=== PATIENT | male | born 1980 ===

== ENCOUNTER 2017-11-15 14:03 | Outpatient (CLI) | END 2017-11-15 14:23 | disposition short-term general hospital (02) | LOC: AMBL 14:03 | PROVIDERS: ATTEND Family Medicine | DX: R50.9 Fever, unspecified (principal); K85.90 Acute pancreatitis without necrosis or infection, unspecified; K74.60 Unspecified cirrhosis of liver; I95.9 Hypotension, unspecified ==

== ENCOUNTER 2017-12-18 03:18 | Emergency (ER) ==
[2017-12-18 03:46] VITALS: BP 121/73; TEMP 98.8
[2017-12-18] MEDS ORDERED: ZOFRAN 4 MG/2 ML IVP STA (03:50)
[2017-12-18] MEDS ORDERED: MORPHINE 2 MG/ML SYRINGE IVP STA (03:50)
[2017-12-18 03:53] VITALS: BMI 26.8
[2017-12-18] MEDS ORDERED: DILAUDID IVP STA ×3 (04:23→06:31)
--- NOTE | 2017-12-18 05:04 | CT ---
Exam: CT of the abdomen and pelvis without contrast History: Abdominal pain Technique: [address] of the abdomen and pelvis without intravascular contrast FINDINGS: Atelectasis in the left lung base. The lung bases are clear otherwise. Large ascites is present. Nodular cirrhotic liver with mild and eight measuring AP diameter of 16 cm. Cholelithiasis is present without abnormal gallbladder distension. The appendix is normal. Normal caliber bowel l oops. Mesenteric edema is present. Vascular structures appear normal by noncontrast CT. Ascites containing umbilical hernia. No bowel loops are seen within the hernia sac. Large pelvic ascites. Colonic diverticulosis. Normal pelvic genitourinary structures. Peripheral e bienvenido of the subcutaneous fat. Impression: 1. Cirrhosis, splenomegaly and large ascites 2. Cholelithiasis without hydropic gallbladder. 3. Ascites containing umbilical hernia 4. No bowel or urinary obstruction 5. Colonic diverticulosis
--- NOTE | 2017-12-18 05:49 | ED.PDOC ---
General ED Provider: Dr. DEVIN RUSH-ER Chief Complaint: Abdominal Pain Stated Complaint: i have gall stones and they are acting up Time Seen by Physician: 05:45 Mode of Arrival: Wheelchair Information Source: Patient Exam Limitations: No limitations Nursing and Triage Documentation Reviewed and Agree: Yes Does patient meet sepsis criteria?: No System Inflammatory Response Syndrome: Not Applicable Sepsis Protocol: For patient's 13 years and over: Temp is 96.8 and below OR 101 and greater Pulse >90 BPM Resp >20/minute Acutely Altered Mental Status Are patient's symptoms suggestive of a new infection, such as: -Pneumonia -Skin, Soft Tissue -Endocarditis -UTI -Bone, Joint Infection -Implantable Device -Acute Abdominal Infection -Wound Infection -Meningitis -Blood Stream Catheter Infection -Unknown GI Complaint Exam - Abdominal Pain Complaint/Exam Onset: Gradual Duration: several weeks Symptoms Are: Still present Timing: Constant Current Severity: Moderate Location of Pain: Discrete, Epigastric Radiates To: Reports: Back Character: Reports: Dull, Aching Aggravating: Reports: Eating Alleviating: Reports: None Associated Signs and Symptoms: Denies: Diaphoresis, Fever, Cough, Chest pain, Dizziness, Back pain, Constipation, Blood in stool, Dysuria, Urinary frequency, Decreased urine output, Decreased appetite, Discharge, Nausea, Vomiting, Diarrhea, Decreased activity Related History: Reports: Similar episode Related Surgical History: Reports: None Abdominal Findings: Present: Pulsatile mass, Hernia Differential Diagnoses: Pancreatitis, GB Quality Indicator For Non-Traumatic Chest Pain/Syncope: EKG Performed Review of Systems - Review Of Systems Constitutional: Reports: No symptoms Eyes: Reports: No symptoms Ears, Nose, Mouth, Throat: Reports: No symptoms Respiratory: Reports: No symptoms Cardiac: Reports: No symptoms GI: Reports: Abdominal pain : Reports: No symptoms Musculoskeletal: Reports: No symptoms Skin: Reports: No symptoms Neurological: Reports: No symptoms Endocrine: Reports: No symptoms Hematologic/Lymphatic: Reports: No symptoms All Other Systems: Reviewed and Negative Past Medical History - Past Medical History Previously Healthy: No Endocrine: Reports: Unknown Cardiovascular: Reports: Unknown Respiratory: Reports: Unknown Hematological: Reports: Unknown Gastrointestinal: Reports: Unknown Genitourinary: Reports: Unknown Neuro/Psych: Reports: Unknown Musculoskeletal: Reports: Unknown Cancer: Reports: Unknown - Surgical History General Surgical History: Reports: Unknown - Family History Family History: Reports: Unknown - Social History Smoking Status: Former smoker Hx Substance Use: No Alcohol Screening: None - Immunizations Tetanus Shot up to Date: Yes Physical Exam - Physical Exam Appearance: Well-appearing, No pain distress, Well-nourished Pain Distress: Moderate Eyes: SHON, EOMI, Conjunctiva clear ENT: Ears normal, Nose normal, Oropharynx normal Neck: Supple Respiratory: Airway patent, Breath sounds clear, Breath sounds equal, Respirations nonlabored Cardiovascular: RRR, Pulses normal, No rub, No murmur GI/: Soft, Bowel sounds normal, Tender, Mass Musculoskeletal: Normal strength Skin: Warm, Dry, Normal color Neurological: Sensation intact, Motor intact, Reflexes intact, Cranial nerves intact, Alert, Oriented Psychiatric: Affect appropriate, Mood appropriate, Anxious Interpretation - Radiology Interpretation Radiology Interpretation By: Radiologist Radiology Results: Negative Exam Interpreted: CT Scan - EKG Interpretation Time of EKG #1: 05:51 Rate: Normal Rhythm: Sinus Ectopy: None [place]: [place] ST Segment: Normal Re-Evaluation - Re-Evaluation Time of Re-Evaluation: 05:51 Status: Improved Vital Signs Stable: Yes Pain Level: 0 Appearance: NAD Lungs: Clear Skin: Warm and Dry Neuro: Alert and Oriented X3 CV: RRR Critical Care Note - Critical Care Note Total Time (mins): 0 Course - Course Hematology/Chemistry: 12/18/17 04:10 12/18/17 04:10 Orders, Labs, Meds: Lab Review 12/18/17 12/18/17 12/18/17 04:10 04:10 04:59 WBC 5.85 RBC 2.53 L Hgb 8.8 L Hct 25.8 L MCV 102.0 H MCH 34.8 H MCHC 34.1 RDW Coeff of Terrance 14.7 Plt Count 113 L Immature Gran % (Auto) 0.3 Neut % (Auto) 63.1 Lymph % (Auto) 17.9 Wirt % (Auto) 13.3 H Eos % (Auto) 5.1 Baso % (Auto) 0.3 Immature Gran # (Auto) 0.0 Neut # (Auto) 3.7 Lymph # (Auto) 1.1 Wirt # (Auto) 0.8 Eos # (Auto) 0.3 Baso # (Auto) 0.0 Sodium 133 L Potassium 3.3 L Chloride 99 Carbon Dioxide 28 Anion Gap 9.3 BUN 15 Creatinine 0.79 Estimated GFR (MDRD) 112.00 BUN/Creatinine Ratio 18.98 Glucose 98 Calcium 7.8 L Total Bilirubin 2.7 H AST 62 H ALT 26 Alkaline Phosphatase 134 Total Creatine Kinase 82 Troponin I < 0.0100 Total Protein 6.1 L Albumin 2.1 L Globulin 4.0 Albumin/Globulin Ratio 0.53 Amylase 97 Lipase 69 Urine Color Yellow Urine Clarity Clear Urine pH 6.0 Ur Specific [place] >=1.030 Urine Protein 1+ Urine Glucose (UA) Negative Urine Ketones Negative Urine Blood Negative Urine Nitrite Negative Urine Bilirubin Negative Urine Urobilinogen 1.0 Ur Leukocyte Esterase Negative Orders Category Date Time Status EKG-(ED ONLY) Stat CARDIO 12/18/17 03:49 Completed ED IV/MEDIPORT/POWERPORT .ONCE EMERGENCY 12/18/17 03:50 Active AMYLASE Stat LAB 12/18/17 04:10 Completed CBC W/ AUTO DIFF Stat LAB 12/18/17 04:10 Completed COMPREHENSIVE METABOLIC PANEL Stat LAB 12/18/17 04:10 Completed CREATINE KINASE Stat LAB 12/18/17 04:10 Completed LIPASE Stat LAB 12/18/17 04:10 Completed PT WITH INR Stat LAB 12/18/17 04:10 Received TROPONIN I Stat LAB 12/18/17 04:10 Completed URINALYSIS C & S IF INDICATED Stat LAB 12/18/17 04:59 Completed 0.9 % Sodium Chloride [Saline Flush] MEDS 12/18/17 03:50 Ordered 1 syr IVF PRN PRN Hydromorphone HCl [Dilaudid] MEDS 12/18/17 04:23 Discontinued 1 mg IVP ONCE STA Hydromorphone HCl [Dilaudid] MEDS 12/18/17 05:05 Discontinued 1 mg IVP ONCE STA Morphine Sulfate [Morphine 2 mg/ml Syringe] MEDS 12/18/17 03:50 Discontinued 2 mg IVP ONCE STA Ondansetron HCl/Pf [Zofran 4 mg/2 ml] MEDS 12/18/17 03:50 Discontinued 4 mg IVP ONCE STA CT ABDOMEN/PELVIS WO CONTRAST Stat RADS 12/18/17 03:49 Completed Medications Generic Name Dose Route Start Last Admin Trade Name Freq PRN Reason Stop Dose Admin Sodium Chloride 1 syr 12/18/17 03:50 Saline Flush IVF PRN PRN To flush IV Discontinued Medications Generic Name Dose Route Start Last Admin Trade Name Freq PRN Reason Stop Dose Admin Hydromorphone HCl 1 mg 12/18/17 04:23 12/18/17 04:26 Dilaudid IVP 12/18/17 04:24 1 mg ONCE STA Administration Hydromorphone HCl 1 mg 12/18/17 05:05 12/18/17 05:08 Dilaudid IVP 12/18/17 05:06 1 mg ONCE STA Administration Morphine Sulfate 2 mg 12/18/17 03:50 12/18/17 04:15 Morphine 2 Mg/Ml Syringe IVP 12/18/17 03:51 2 mg ONCE STA Administration Ondansetron HCl 4 mg 12/18/17 03:50 12/18/17 04:15 Zofran 4 Mg/2 Ml IVP 12/18/17 03:51 4 mg ONCE STA Administration mr winters pain is epigastric and i think appropriate to his gallstones---he does umbilical hernia but this is not causing him trouble at this time---his hgb is 8 and appears stable from his recent [facility] stay0--denies any brb or melanotic stools Vital Signs: Temp Pulse Resp BP Pulse Ox 12/18/17 03:24 98.8 F 83 20 121/73 96 Departure - Departure Time of Disposition: 05:51 Disposition: HOME SELF-CARE Discharge Problem: Umbilical hernia without obstruction and without gangrene Cholelithiasis Qualifiers: Cholelithiasis location: gallbladder Cholecystitis presence: without cholecystitis Biliary obstruction: without biliary obstruction Qualified Code(s) : K80.20 - Calculus of gallbladder without cholecystitis without obstruction Instructions: Gallstones (ED) Condition: Good Pt referred to PMD for follow-up: No IPMP verified?: No Additional Instructions: bentyl 10mg qid prn pain #30--avoid fat--f/u with pcp and consider surgical referral Allergies/Adverse Reactions: Allergies adhesive Adverse Reaction (Verified 12/18/17 03:47) Rash Penicillins Adverse Reaction (Verified 12/18/17 03:47) Rash spironolactone Adverse Reaction (Verified 12/18/17 03:47) Nausea Home Medications: Ambulatory Orders Amiloride HCl 5 mg PO BID 12/18/17 Bumetanide 2 mg PO DAILY 12/18/17 Calcium Carbonate [Calcium] 500 mg PO DAILY 12/18/17 Ferrous Gluconate 324 mg PO DAILY 12/18/17 Fluticasone Propionate [Flonase] 1 spray NS DAILY PRN 12/18/17 Folic Acid 1 mg PO DAILY 12/18/17 Levofloxacin [Levaquin] 500 mg PO QDAC 12/18/17 Magnesium Oxide [Mag-Ox] 800 mg PO DAILY 12/18/17 Multivitamin/Iron/Folic Acid [Centrum Adults Tablet] 1 tab PO DAILY 12/18/17 Ondansetron [Zofran Odt] 4 mg PO Q8H PRN 12/18/17 Oxycodone HCl 10 mg PO Q4H PRN 12/18/17 Vitamin B Complex 1 each PO DAILY 12/18/17 Disposition Discussed With: Patient
== END 2017-12-18 08:50 | disposition home or self-care (01) ==
LOC: ED 03:18
DX: K80.20 Calculus of gallbladder without cholecystitis without obstruction (principal); K42.9 Umbilical hernia without obstruction or gangrene
CPT/HCPCS: 36415; 80053; 81001; 82150; 82550; 83690; 84484; 85025; 85610; 93005; 93010; 96374; 96375; 96376; 99283

== ENCOUNTER 2018-01-01 00:53 | Outpatient (CLI) | END 2018-01-01 01:12 | disposition short-term general hospital (02) | LOC: AMBL 00:53 | PROVIDERS: ATTEND Emergency Medicine | DX: R50.9 Fever, unspecified (principal); R19.00 Intra-abdominal and pelvic swelling, mass and lump, unspecified site; K74.60 Unspecified cirrhosis of liver; R40.2411 Glasgow coma scale score 13-15, in the field [EMT or ambulance]; R06.9 Unspecified abnormalities of breathing; R10.9 Unspecified abdominal pain; R00.0 Tachycardia, unspecified ==

== ENCOUNTER 2018-01-12 17:46 | Outpatient (CLI) | END 2018-01-12 17:57 | disposition short-term general hospital (02) | LOC: AMBL 17:46 | PROVIDERS: ATTEND Internal Medicine | DX: M54.2 Cervicalgia (principal); M54.9 Dorsalgia, unspecified; V59.50XA Passenger in pick-up truck or van injured in collision with unspecified motor vehicles in traffic accident, initial encounter ==

== ENCOUNTER 2018-03-18 18:41 | Outpatient (CLI) | END 2018-03-18 19:02 | disposition short-term general hospital (02) | LOC: AMBL 18:41 | PROVIDERS: ATTEND Emergency Medicine | DX: R41.82 Altered mental status, unspecified (principal); R50.9 Fever, unspecified; R00.0 Tachycardia, unspecified ==

== ENCOUNTER 2018-10-12 15:00 | Outpatient (RCR) ==
--- NOTE | 2018-09-27 09:31 | RS.OPPTEV2 ---
Date of Note: 09/24/18 Visit #: 1 Number of visits approved by Insurance: pending Date of Evaluation: 09/24/18 Payer Source: Medicaid Treatment Diagnosis: General weakness, gait abnormality History of Condition/Mechanism of Injury:: Mr. Garcia reports generalized weakness as a result of multiple medical problems and hospitalizations. He was diagnosed with Cirrhosis in 2016 and has been having complications with ascites and cellulitis. In March 2018,he had an umbilical hernia rupture and had to have emergency surgery. During that surgery, an artery in a muscle was knicked and he had to have another surgery. He spent approximately a month in the hospital and then went to a SNF for rehab. has been home for about a week and is staying with his mother. Level of Function: Prior to the last 18 months to 2 years, Mr. Garcia was independent in all selfcare, ADL's and worked hanging drywall. Functional Limitations: Sleep, Self Care, ADL's, Reaching, Pushing, Pulling, Lifting, Carrying, Standing, Bending, Squatting, Ambulation, Community Access/ Integration Current Subjective/complaints:: Mr. Garcia reports continued ascites and swelling in his LE's. States his legs are very sore to the touch and makes ambulation difficult. States he is unable to wash his feet. He has difficulty at times getting out of a chair or bed due to leg pain. Usually he is independent with transfers. He reports difficulty getting in/out of a vehicle. States he cannot stand or walk very far without getting swelling into his legs. States he is not using an assistive device. His mother states that he will use a cane if he walks very far. He denies any recent falls. His mother's home has 3 steps to the deck. He reports pain in his legs, especially feet, ankles, and knees. States he wants to gain his strength back and return to work. *Precautions: failed Umbilical hernia ALLERGY TO ADHESIVE Medical History Medical History Comments:: Cirrhosis Surgical History Comments:: Failed umbilical hernia repair Smoking Status: Former smoker Hx Home Medications: Bumex, Cipro, Lactulose, Oxycodone, Lorazepam, Haldol, Rifaximin,ViT E, Zinc, Vit C, Iron, magnesium Patient's Goals: His goal is to ride his bike again and return to work. Functional Outcome Measure LE Functional Scale: 15 () Tinetti: 21 () - G Codes & Severity Modifier G Codes & Modifier: NA Source of G Code score: NA Observation - Observation Inspection: Mr. Garcia presents with sigificant swelling in bilateral LE's below the knees. Left LE is obviously more swollen than the right. He also demonstrates abdomen ascites. Posture: Forward Head, Rounded Shoulders Gait - Gait Pattern Gait Comments: Patient ambulates without an assistive device, independently. He demonstates no reciprocal arm swing and minimal trunk rotation with ambulation. Demonstrates decreased hip and knee flexion during swing phase bilaterally. Demonstrates short stride and decreased heelstrike and toe off. General Range of Motion: Bilateral LE AROM is WFL's. AROM is limited by swelling in LE' s and hip flexion limited by abdomen. Left UE is WFL's, Right shoulder limited to 90 degrees flexion/abduction, all else of right shoulder WFL's. Muscle Strength: Right shoulder 4-/5, elbow 4+/5, wrist 4/5. Left shoulder 4/5, elbow and wrist 4 to 4+/5. Trunk strength 3+/5. Bilateral hip strength 4-/5, knees 4/5, ankles 4/5. Reports pain with all MMT of the LE's due to tenderness. Machine Brush Maker Strength Left Hand Machine Brush Maker Strength: 66 lbs Right Hand Machine Brush Maker Strength: 78-80 lbs Dynamometer Testing Position: 2nd Position Palpation Comments:: Tenderness with any light touch or pressure to both legs from the knees to his feet. Sensation - Sensation Right Lower Extremity: Intact/Normal Left Lower Extremity: Intact/Normal Comments: Reports tenderness with light touch from his knees to his feet. Balance - Sitting Balance Static Sitting Balance: Good Dynamic Sitting Balance: Good - Standing Balance Static Standing Balance: Good Dynamic Standing Balance: Fair (+) Coordination - Tests Bilateral Finger to Nose: Normal/Intact Heel to [place]: Normal/Intact Toe Tapping: Normal/Intact Interventions - Exercise/Activities/Manual Therapy Exercises/Activities: NA Manual Therapy: NA - Charges Timed Code Treatment Minutes: 0 mins Total Treatment Time: 65 mins Procedures billed for this date of service:: EVAL HIgh complexity EVALUATION COMPLEXITY LEVEL EVALUATION COMPLEXITY LEVEL: HISTORY: High (Cirrhosis, Ascites, LE swelling, Failed Umbilical hernia), EXAM OF BODY SYSTEMS: High (ROM, MS, sensation, gait, balance, etc), CLINICAL PRESENTATION: High (evolving condition), CLINICAL DECISION MAKING: High Assessment Assessment: Mr. Garcia presents to therapy with a diagnosis of Muscle weakness. He has had multiple medical issues and hospital stays that have caused him to become very weak. He presents with general weakness, declined functional ability, and difficulty with gait. He is living with his mother due to needing assistance. His Tinetti Score today shows him to be at a Moderate Risk for falls. He demonstrates good potential to regain strenght and return to his previous level of function. Patient Education: Education of diagnosis, Body/Joint mechanics, Home Safety, Activity Modification, Education of Plan of Care Rehab Potential: Good Short Term Goals Goal #1: Patient independent in initial HEP Goal to be met by: 10/11/18 Goal #2: Trunk strength improved to 4/5. Goal to be met by: 10/11/18 Goal #3: Bilateral hip strength improved to 4/5. Goal to be met by: 10/11/18 Group Home Goals Goal #1: Pt knows HEP and to continue ex's to maintain functional level at D/C. Goal to be met by: 11/11/18 Goal #2: Score on Tinetti Assessment improved to 26/28. Goal to be met by: 11/11/18 Goal #3: Pt able to amb. community distances with min. gt deviation. Goal to be met by: 11/11/18 Goal #4: Strength improved to allow pt to perform all selfcare and ADL's independ. Goal to be met by: 11/11/18 Plan - Treatment to be Provided Procedures: Therapeutic Exercises, Therapeutic Activity, Gait Training, Neuromuscular Rehab, Patient Education Modalities: No Modalities - Treatment Plan Frequency: 2-3 X week Duration: 6 weeks Dates of Stock Turner Goals: 11/11/18 Expiration date of current Insurance Approval:: pending - Treatment Code (1) Generalized muscle weakness Code(s): M62.81 - MUSCLE WEAKNESS (GENERALIZED) Comments: M62.81 (2) Gait difficulty Code(s): R26.9 - UNSPECIFIED ABNORMALITIES OF GAIT AND MOBILITY Comments: R26.9 (3) Other reduced mobility Code(s): Z74.09 - OTHER REDUCED MOBILITY Comments: Z74.09 Impaired functional mobility, gait, balance. (4) At risk for falls Code(s): Z91.81 - HISTORY OF FALLING Comments: Z91.81 At moderate risk for falls.
--- NOTE | 2018-10-06 14:10 | RS.OPPTDN ---
Subjective Date of Note: 10/06/18 Visit #: 2 Number of visits approved by Insurance: pending Date of Evaluation: 09/24/18 Payer Source: Medicaid Treatment Diagnosis: General weakness, gait abnormality Current Subjective/complaints:: Patient reports extreme pain n the legs today, tender totouch also. *Precautions: failed Umbilical hernia ALLERGY TO ADHESIVE Pain Assessment - Pain Description Pain Location: both LE's Pain Description: Burning, Aching, Chronic Current Pain Intensity: 9/10 Interventions - Exercise/Activities/Manual Therapy Exercises/Activities: 40 mins. total ,3/15 each , ankle pumps,SAQ,heelslides, alternating hip flexion,hip abd/adduction in hooklying position.Rested 2 mins. then repeated the same exercises 3/15 each again.Instructed to do exercises in PAIN FREE RANGE. Total minutes of Exercise: 40 Manual Therapy: NA Total minutes of Manual Therapy: 0 HOME EXERCISE PROGRAM: ankle pumps,SAQ's ,heelslides,altenating hip flexion,hip abd/add - Charges Timed Code Treatment Minutes: 40 Total Treatment Time: 50 Procedures billed for this date of service:: ex 3 Assessment: Patient fatigues easily requires frequent rest periods today,moves slowly and guarded due to pain in the legs and abdominal.Patient inquires about core strengthening ,explained to focus on LE's due to recent umbilical hernia repair 6 months ago, and core exercises would not be recommended at this time. Patient Education: Education of diagnosis, Body/Joint mechanics, Home Exercise Program, Home Safety, Activity Modification, Education of Plan of Care Short Term Goals Goal #1: Patient independent in initial HEP Goal to be met by: 10/11/18 Progress towards Goal:: Progressing Goal #2: Trunk strength improved to 4/5. Goal to be met by: 10/11/18 Goal #3: Bilateral hip strength improved to 4/5. Goal to be met by: 10/11/18 Long-Term Goals Goal #1: Pt knows HEP and to continue ex's to maintain functional level at D/C. Goal to be met by: 11/11/18 Goal #2: Score on Tinetti Assessment improved to 26/28. Goal to be met by: 11/11/18 Goal #3: Pt able to amb. community distances with min. gt deviation. Goal to be met by: 11/11/18 Goal #4: Strength improved to allow pt to perform all selfcare and ADL's independ. Goal to be met by: 11/11/18 Plan Dates of Mounter Clarinets Goals: 11/11/18 Expiration date of current Insurance Approval:: na PLAN: Cont. skilled PT to strengthen the LE's for improved transfers and gait on all surfaces.
--- NOTE | 2018-10-08 14:30 | RS.OPPTDN ---
Subjective Date of Note: 10/08/18 Visit #: 3 Number of visits approved by Insurance: pending Date of Evaluation: 09/24/18 Payer Source: Medicaid Treatment Diagnosis: General weakness, gait abnormality Current Subjective/complaints:: Pastient feels he is walking a little better today ,using the cane ,as opposed not using it. *Precautions: failed Umbilical hernia ALLERGY TO ADHESIVE Pain Assessment - Pain Description Pain Location: LE"s Pain Description: Chronic Current Pain Intensity: not rated Interventions - Exercise/Activities/Manual Therapy Exercises/Activities: 45 mins. total ,3/15 each , ankle pumps,SAQ,heelslides, alternating hip flexion,hip abd/adduction in hooklying position.Rested 2 mins. then repeated the same exercises 3/15 each again.Instructed to do exercises in PAIN FREE RANGE. Total minutes of Exercise: 45 Manual Therapy: NA Total minutes of Manual Therapy: 0 HOME EXERCISE PROGRAM: ankle pumps,SAQ's ,heelslides,altenating hip flexion,hip abd/add - Charges Timed Code Treatment Minutes: 45 Total Treatment Time: 45 Procedures billed for this date of service:: ex 3 Assessment: Patient offers more active asist today,still requires frequent rest periods during the LE exercises.He has functional ROM in the LE's .He has widened XIN due to weakness in the hip abductors. Patient Education: Education of diagnosis, Body/Joint mechanics, Home Exercise Program, Home Safety, Activity Modification, Education of Plan of Care Patient demonstrates compliance with HEP?: Yes Short Term Goals Goal #1: Patient independent in initial HEP Goal to be met by: 10/11/18 Progress towards Goal:: Progressing Goal #2: Trunk strength improved to 4/5. Goal to be met by: 10/11/18 Goal #3: Bilateral hip strength improved to 4/5. Goal to be met by: 10/11/18 Progress towards Goal:: Progressing Digital Campaign Specialist Goals Goal #1: Pt knows HEP and to continue ex's to maintain functional level at D/C. Goal to be met by: 11/11/18 Goal #2: Score on Tinetti Assessment improved to 26/28. Goal to be met by: 11/11/18 Goal #3: Pt able to amb. community distances with min. gt deviation. Goal to be met by: 11/11/18 Goal #4: Strength improved to allow pt to perform all selfcare and ADL's independ. Goal to be met by: 11/11/18 Plan Dates of Digital Campaign Specialist Goals: 11/11/18 Expiration date of current Insurance Approval:: na PLAN: Cont. PT to strengthen the LE's for safer transfers and gait on all surfaces.
--- NOTE | 2018-10-12 16:26 | RS.OPPTDN ---
Subjective Date of Note: 10/12/18 Visit #: 4 Number of visits approved by Insurance: pending Date of Evaluation: 09/24/18 Payer Source: Medicaid Treatment Diagnosis: General weakness, gait abnormality Current Subjective/complaints:: Patient has new tennis shoes today,walking better with more support.He is motivated to improve. *Precautions: failed Umbilical hernia ALLERGY TO ADHESIVE Pain Assessment - Pain Description Pain Location: both LE's Pain Description: Aching, Chronic Current Pain Intensity: not rated Interventions - Exercise/Activities/Manual Therapy Exercises/Activities: 55 mins. total ,3/15 each , ankle pumps,SAQ,heelslides, alternating hip flexion,hip abd/adduction in hooklying position.Progressed to bilateral leg press,3/15 @ 30 #,45 #,then 60 #,red theraband for hip abd / adduction in sitting. Total minutes of Exercise: 55 Manual Therapy: NA Total minutes of Manual Therapy: 0 HOME EXERCISE PROGRAM: ankle pumps,SAQ's ,heelslides,altenating hip flexion,hip abd/add - Charges Timed Code Treatment Minutes: 55 Total Treatment Time: 55 Procedures billed for this date of service:: ex 4 Assessment: Patient tolerates the resistive exercises better today,has good eccentric control for the quads /hams. and hip abd /adductors.He is reminded to not do heavy exercises at home ,protect the recent hernia repair .Recommended light resistance and multiple reps. for improving the muscle strength and tone. Patient Education: Education of diagnosis, Body/Joint mechanics, Home Exercise Program, Home Safety, Activity Modification, Education of Plan of Care Short Term Goals Goal #1: Patient independent in initial HEP Goal to be met by: 10/11/18 Progress towards Goal:: Progressing Goal #2: Trunk strength improved to 4/5. Goal to be met by: 10/11/18 Goal #3: Bilateral hip strength improved to 4/5. Goal to be met by: 10/11/18 Progress towards Goal:: Progressing Salesperson Furniture Goals Goal #1: Pt knows HEP and to continue ex's to maintain functional level at D/C. Goal to be met by: 11/11/18 Progress towards goal: Progressing Goal #2: Score on Tinetti Assessment improved to 26/28. Goal to be met by: 11/11/18 Goal #3: Pt able to amb. community distances with min. gt deviation. Goal to be met by: 11/11/18 Progress towards goal: Progressing Goal #4: Strength improved to allow pt to perform all selfcare and ADL's independ. Goal to be met by: 11/11/18 Plan Dates of Salesperson Furniture Goals: 11/11/18 Expiration date of current Insurance Approval:: na PLAN: Cont. skilled PT tp maximize the LE/trunk strength for safe transfers and gait on all surfaces.
--- NOTE | 2018-10-15 12:35 | RS.CXNS ---
Date of scheduled appointment: 10/15/18 Type: Cancel Reason for Cancel/NS: Patient sick,has elevated temp. today.
== END 2018-10-19 23:59 ==
PROVIDERS: ATTEND Physician Assistant
DX: M62.81 Muscle weakness (generalized) (principal)

== ENCOUNTER 2018-11-01 14:00 | Outpatient (RCR) ==
--- NOTE | 2018-10-28 14:16 | RS.CXNS ---
Date of scheduled appointment: 10/28/18 Type: No Show Reason for Cancel/NS: Unknown
--- NOTE | 2018-10-28 15:07 | RS.OPPTDN ---
Subjective Date of Note: 10/28/18 Visit #: 5 Number of visits approved by Insurance: pending Date of Evaluation: 09/24/18 Payer Source: Medicaid Treatment Diagnosis: General weakness, gait abnormality Current Subjective/complaints:: Patient reports the legs and feet hurt , moderate pain currently. *Precautions: failed Umbilical hernia ALLERGY TO ADHESIVE Pain Assessment - Pain Description Pain Location: legs/feet Pain Description: Dull, Aching, Chronic Current Pain Intensity: 5/10 Interventions - Exercise/Activities/Manual Therapy Exercises/Activities: 35 mins. total ,315 on @ bilateral leg press 30# ,then 45 #.Copies of HEP given for ankle pumps,calf raises,SAQ's,hamstring curls,SLR's ,hip abduction.Instructed to do all exercises IN PAIN FREE ROM. Total minutes of Exercise: 35 Manual Therapy: NA Total minutes of Manual Therapy: 0 HOME EXERCISE PROGRAM: ankle pumps,SAQ's ,heelslides,altenating hip flexion,hip abd/add - Charges Timed Code Treatment Minutes: 35 Total Treatment Time: 35 Procedures billed for this date of service:: ex 2 Assessment: Patient fatigues easily due to recently having an infection and fever.He does wear a binder due to abdominal hernia,is cautious with all motions.He has less edema in the LE's today.He is attentive ,emotional at times due to his de-conditioned state. Patient Education: Education of diagnosis, Body/Joint mechanics, Home Exercise Program, Home Safety, Activity Modification, Education of Plan of Care Patient demonstrates compliance with HEP?: Yes Short Term Goals Goal #1: Patient independent in initial HEP Goal to be met by: 10/11/18 Progress towards Goal:: Progressing Goal #2: Trunk strength improved to 4/5. Goal to be met by: 10/11/18 Goal #3: Bilateral hip strength improved to 4/5. Goal to be met by: 10/11/18 Progress towards Goal:: Progressing Environmental Planner Goals Goal #1: Pt knows HEP and to continue ex's to maintain functional level at D/C. Goal to be met by: 11/11/18 Progress towards goal: Met Goal #2: Score on Tinetti Assessment improved to 26/28. Goal to be met by: 11/11/18 Goal #3: Pt able to amb. community distances with min. gt deviation. Goal to be met by: 11/11/18 Progress towards goal: Progressing Goal #4: Strength improved to allow pt to perform all selfcare and ADL's independ. Goal to be met by: 11/11/18 Plan Dates of [facility] Goals: 11/11/18 Expiration date of current Insurance Approval:: pending PLAN: Cont. skilled PT to maximize trunk/LE strength.
--- NOTE | 2018-11-01 15:25 | RS.OPPTDN ---
Subjective Date of Note: 11/01/18 Visit #: 6 Number of visits approved by Insurance: pending Date of Evaluation: 09/24/18 Payer Source: Medicaid Treatment Diagnosis: General weakness, gait abnormality Current Subjective/complaints:: Patient reports increased swelling in the L LE today,has been keping tboth LE's elevated as often as possible. *Precautions: failed Umbilical hernia ALLERGY TO ADHESIVE Interventions - Exercise/Activities/Manual Therapy Exercises/Activities: 40 mins. total ,3/15 each in supine for ankle pumps,QS,SAQ 's,heelslides,hip abd /add ; assisted SLR's ( to protect abdominal hernia) .Ended session with isometric hip abd/adduction in hooklying position.Patient education for body mechanics when transferring from supine to sit . Total minutes of Exercise: 40 Manual Therapy: NA HOME EXERCISE PROGRAM: ankle pumps,SAQ's ,heelslides,altenating hip flexion,hip abd/add - Charges Timed Code Treatment Minutes: 40 Total Treatment Time: 40 Procedures billed for this date of service:: ex 3 Assessment: Patient offers more active assist today as the exercises progress.He does have decreased edema in the LE's after exercises today , encouraged to elevate the legs as he does the exercises when he has exesive edema present.He has improved posture and gait speed after the treatment today.The L LE edema is visibly improved ,compared to when he arrives at the clinic. Patient Education: Body/Joint mechanics, Home Exercise Program, Home Safety, Activity Modification, Education of Plan of Care Patient demonstrates compliance with HEP?: Yes Short Term Goals Goal #1: Patient independent in initial HEP Goal to be met by: 10/11/18 Progress towards Goal:: Progressing Goal #2: Trunk strength improved to 4/5. Goal to be met by: 10/11/18 Goal #3: Bilateral hip strength improved to 4/5. Goal to be met by: 10/11/18 Progress towards Goal:: Progressing Certified Mortician Goals Goal #1: Pt knows HEP and to continue ex's to maintain functional level at D/C. Goal to be met by: 11/11/18 Progress towards goal: Met Goal #2: Score on Tinetti Assessment improved to 26/28. Goal to be met by: 11/11/18 Goal #3: Pt able to amb. community distances with min. gt deviation. Goal to be met by: 11/11/18 Progress towards goal: Progressing Goal #4: Strength improved to allow pt to perform all selfcare and ADL's independ. Goal to be met by: 11/11/18 Plan Dates of Long-Term Goals: 11/11/18 Expiration date of current Insurance Approval:: pending PLAN: Cont. skilled PT to achieve the highest level of strength for safe gait on all surfaces.
--- NOTE | 2018-11-17 13:28 | RS.QUICKDC ---
Discharge from PT Date of Discharge: 11/17/18 Number of Visits: 6 Reason for Discharge: Patient has HEP to be done independently,current PT orders on 11-11-18.
== END 2018-11-19 23:59 ==
PROVIDERS: ATTEND Physician Assistant
DX: M62.81 Muscle weakness (generalized) (principal)

== ENCOUNTER 2018-11-30 07:28 | Outpatient (CLI) ==
--- NOTE | 2018-11-30 09:14 | US ---
EXAM: Right upper quadrant abdominal ultrasound. History: Cirrhosis. Abdominal pain. Technique: Multiple sonographic images through the abdomen were obtained. Color duplex Doppler was used to interrogate vascular flow. Findings: Nodular cirrhotic liver. No focal liver lesions identified sonographically. The visualized pancreas demonstrates no gross abnormality. There is antegrade flow within the main portal vein. A moderate -to-large volume ascites. Limited visualization of the right kidney demonstrates no evidence for hyd ronephrosis. Cholelithiasis and mild gallbladder wall thickening. Common bile duct measures 0.6 cm in caliber. Gallbladder is distended. Impression: 1. Cirrhotic liver and ascites. 2. Cholelithiasis with mild gallbladder wall thickening. 3. Borderline dilated common bile duct
== END 2018-11-30 07:29 | disposition home or self-care (01) ==
LOC: RAD 07:28
PROVIDERS: ATTEND Physician Assistant Medical
DX: K70.31 Alcoholic cirrhosis of liver with ascites (principal); G93.40 Encephalopathy, unspecified; E43 Unspecified severe protein-calorie malnutrition; R10.9 Unspecified abdominal pain; G89.29 Other chronic pain; R18.8 Other ascites; Z86.19 Personal history of other infectious and parasitic diseases

== ENCOUNTER 2019-02-13 06:09 | Outpatient (CLI) | END 2019-02-13 06:15 | disposition short-term general hospital (02) | LOC: AMBL 06:09 | PROVIDERS: ATTEND Family Medicine | DX: K92.0 Hematemesis (principal); K74.60 Unspecified cirrhosis of liver; R17 Unspecified jaundice; R41.82 Altered mental status, unspecified; K46.9 Unspecified abdominal hernia without obstruction or gangrene ==